=== PATIENT | female | born 1950 | race Caucasian/White ===

== ENCOUNTER 2018-08-09 23:58 | Emergency (ER) | payer MEDICARE, MEDICAID ==
[~2018-08-09] VITALS: Ht 162.6 cm; Wt 68.1 kg
[~2018-08-09 23:58] MED LIST: ALPR0.25 HHN; CARI350T PO; CIPR500T3 PO; HYDR-3240 PO; LACT1CAP35 PO; LISI-167 PO; METR-90 PO; OXYC-307 PO; SIMV20TA3 PO
--- NOTE | 2018-08-10 00:19 | NUR ---
PT REPORTS N/V/D AND NO SLEEP PAST FEW DAYS "I CAN'T TAKE IT ANY MORE"
[2018-08-10] MEDS ORDERED: ONDANSETRON 2MG/ML, 2ML IVPush ONE (00:30)
[2018-08-10] MEDS ORDERED: FAMOTIDINE 20 MG/2 ML IVPush ONE (00:30)
[2018-08-10] MEDS ORDERED: SODIUM CHLORIDE 0.9% 1,000ML IVBOLUS ONE (00:30)
[2018-08-10] MEDS ORDERED: SODIUM CHLORIDE FLUSH 10ML SYR IVF ONE (00:30)
[2018-08-10] MEDS ORDERED: FAMOTIDINE 20 MG/2 ML ONE (00:35)
[2018-08-10] MEDS ORDERED: ONDANSETRON 2MG/ML, 2ML ONE (00:35)
[2018-08-10 00:50] LABS: MEAN CORPUSCULAR HEMOGLOBIN 29.1 pg (27.0-34.8); MEAN CORPUSCULAR HGB CONC 32.6 g/dL (32.4-35.8); MEAN CORPUSCULAR VOLUME 89.1 fL (80-100); MEAN PLATELET VOLUME 7.9 fL (7.4-10.4); PLATELET COUNT 406 x10^3/uL (130-400); RED BLOOD COUNT 5.34 x10^6/uL (3.82-5.3); RED CELL DISTRIBUTION WIDTH 14.3 % (9.6-15.2)
[2018-08-10] MEDS ORDERED: DICYCLOMINE 10 MG CAPSULE ONE (00:58)
[2018-08-10] MEDS ORDERED: DICYCLOMINE 20 MG TABLET PO ONE (01:00)
[2018-08-10] MEDS ORDERED: CEFTRIAXONE 250 MG IM ONE (01:00)
[2018-08-10] MEDS ORDERED: DOXYCYCLINE 100MG TABLET PO ONE (01:00)
[2018-08-10 01:03] LABS: ALANINE AMINOTRANSFERASE 28 U/L (12-78); ALBUMIN 3.9 g/dL (3.4-5.0); ANION GAP 10 mmol/L (5-15); CALCIUM 9.8 mg/dL (8.5-10.1); CHLORIDE 108 mmol/L (98-107)
--- NOTE | 2018-08-10 01:05 | NUR ---
REPORT TO JEFFREY AT THIS TIME
--- NOTE | 2018-08-10 01:05 | NUR ---
PT TOLERATED PIV MEDICATED PER ND ORDERSIVF RUNNING
[2018-08-10 01:07] LABS: ALKALINE PHOSPHATASE 112 U/L (45-117); BILIRUBIN,TOTAL 0.4 mg/dL (0.2-1.0); TROPONIN I < 0.015 ng/mL (0.000-0.045)
--- NOTE | 2018-08-10 01:15 | NUR ---
assumed care for this pt
[2018-08-10 01:41] LABS: BASOPHILS # (AUTO) 0.09 x10^3/uL (0-0.1); BASOPHILS % (AUTO) 1 % (0-1); EOSINOPHILS % (AUTO) 2 % (1-7); LYMPHOCYTES # (AUTO) 2.03 x10^3/uL (1-3.4); LYMPHOCYTES % (AUTO) 12 % (22-44); MD SCAN; MONOCYTES # (AUTO) 0.57 x10^3/uL (0.2-0.8); MONOCYTES % (AUTO) 3 % (2-9); NEUTROPHILS # (AUTO) 13.59 x10^3/uL (1.8-6.8); NEUTROPHILS % (AUTO) 82 % (42-75)
--- NOTE | 2018-08-10 02:00 | NUR ---
PT ASLEEP VSS AND IN NO DISTRESS AT THIS TIME. PT AWAITING TEST RESULTS AND ERP RECHECK.
--- NOTE | 2018-08-10 02:13 | NUR ---
SECOND IV STARTED FOR CT SCAN. PT STILL HAVING N/V WHILE AWAKE.
[2018-08-10] MEDS ORDERED: OMNIPAQUE 350 MG/ML, 100ML BOTTLE ONE (02:26)
[2018-08-10] MEDS ORDERED: PROMETHAZINE 25 MG/ML, 1ML ONE (02:43)
--- NOTE | 2018-08-10 02:53 | NUR ---
PT BACK FROM CT SCAN AND MEDICATED FOR NAUSEA ORDERED.
[2018-08-10] MEDS ORDERED: PROMETHAZINE 25 MG/ML, 1ML IM ONE (03:00)
[2018-08-10 03:02] VITALS: BP 132/74
--- NOTE | 2018-08-10 03:22 | NUR ---
PO CHALLENGE STARTED.
[2018-08-10 03:30] LABS: MICROSCOPIC NOT IND
--- NOTE | 2018-08-10 03:35 | NUR ---
MÓNICA RN: PT IS ABLE TO TOLERATE WATER AT THIS TIME. VS STABLE. CALL LIGHT IN PLACE. WILL CONTINUE TO MONITOR WHILE PRIMARY JEFFREY RAI IS AT LUNCH.
[2018-08-10 03:40] LABS: CULTURE INDICATED? NO
== END 2018-08-10 04:29 | disposition home or self-care (01) ==
LOC: ED 08-10 04:10
DX: R11.2 Nausea with vomiting, unspecified (principal); R19.7 Diarrhea, unspecified; R10.13 Epigastric pain; F32.9 Major depressive disorder, single episode, unspecified; E86.0 Dehydration; G47.00 Insomnia, unspecified; F17.210 Nicotine dependence, cigarettes, uncomplicated; I10 Essential (primary) hypertension; Z90.49 Acquired absence of other specified parts of digestive tract; Z90.710 Acquired absence of both cervix and uterus
CPT/HCPCS: 36415; 74177; 80053; 81003; 83690; 84484; 85025; 93005; 96361; 96372; 96374; 96375; 99284; J2405; J2550; J3490; J7030; Q9967

== ENCOUNTER 2019-03-07 16:33 | Inpatient (IN) | payer OTHER, MEDICARE, MEDICAID ==
[~2019-03-07] VITALS: Ht 162.6 cm; Wt 83.5 kg
[~2019-03-07 16:33] MED LIST changes: -ALPR0.25 HHN; +ALPR0.25 PO
--- NOTE | 2019-03-07 16:56 | NUR ---
task rn: PT AMBUALTORY WITH STEADY GAIT TO ROOM AT THIS TIME. PT TO RESTROOM.
[2019-03-07] MEDS ORDERED: ACETAMINOPHEN 325 MG TABLET PO ONE (17:00)
[2019-03-07] MEDS ORDERED: ACETAMINOPHEN 325 MG TABLET ONE ×2 (17:01→22:50)
--- NOTE | 2019-03-07 17:04 | NUR ---
TASK RN: PT CHANGED INTO GOWN. LAB BEDSIDE PT PLACED ON CONT PULSE OX,NIBP, RADIAL ARM SAW OPERATOR
--- NOTE | 2019-03-07 17:07 | NUR ---
TASK RN: 68 Y/O FEMALE PRESENTS TO ED WITH C/O CP/BILATERAL RIB PAIN. PER PT "I HAVE PAIN ON BOTH OF MY SIDES AND ACROSS MY CHEST. IT STARTED ABOUT 4 DAYS AGO. IT'S GOTTEN WORSE. I JUST CAN'T BREATH NOW. I HAVE A LOT OF PAIN, BUT THE BREATHING IS HARD. I WAS SICK A MONTH AGO AND I GOT A CXR. THE DR SAID I HAD SCARRING." NO C/O TRAUMA, SYNCOPE, N/V/D.
[2019-03-07] MEDS ORDERED: SERT50TA PO (17:12)
[2019-03-07] MEDS ORDERED: IBUP-1222 PO (17:12)
[2019-03-07] MEDS ORDERED: LISI-170 PO (17:12)
--- NOTE | 2019-03-07 17:17 | NUR ---
BEDSIDE REPORT TO DENISE VALENZUELA RN.
[2019-03-07 17:23] LABS: BASOPHILS # (AUTO) 0.15 x10^3/uL (0-0.1); BASOPHILS % (AUTO) 1 % (0-1); EOSINOPHILS # (AUTO) 0.47 x10^3/uL (0-0.4); EOSINOPHILS % (AUTO) 3 % (1-7); LYMPHOCYTES # (AUTO) 2.58 x10^3/uL (1-3.4); LYMPHOCYTES % (AUTO) 17 % (22-44); MD NO; MEAN CORPUSCULAR HEMOGLOBIN 29.3 pg (27.0-34.8); MEAN CORPUSCULAR HGB CONC 32.8 g/dL (32.4-35.8); MEAN CORPUSCULAR VOLUME 89.3 fL (80-100); MEAN PLATELET VOLUME 9.3 fL (7.4-10.4); MONOCYTES % (AUTO) 7 % (2-9); NEUTROPHILS # (AUTO) 10.92 x10^3/uL (1.8-6.8); NEUTROPHILS % (AUTO) 72 % (42-75); PLATELET COUNT 339 x10^3/uL (130-400); RED BLOOD COUNT 3.93 x10^6/uL (3.82-5.3); RED CELL DISTRIBUTION WIDTH 14.8 % (9.6-15.2)
--- NOTE | 2019-03-07 17:27 | NUR ---
MD TO BEDSIDE FOR ASSESSMENT
[2019-03-07 17:29] LABS: ALANINE AMINOTRANSFERASE 127 U/L (12-78); ALBUMIN 3.6 g/dL (3.4-5.0); ANION GAP 10 mmol/L (5-15); CALCIUM 8.7 mg/dL (8.5-10.1); CHLORIDE 113 mmol/L (98-107); CREATININE 0.89 mg/dL (0.55-1.02)
[2019-03-07 17:33] LABS: ALKALINE PHOSPHATASE 120 U/L (45-117); BILIRUBIN,TOTAL 0.4 mg/dL (0.2-1.0); TOTAL PROTEIN 7.3 g/dL (6.4-8.2); TROPONIN I < 0.015 ng/mL (0.000-0.045)
[2019-03-07] MEDS ORDERED: CEFTRIAXONE PMX 1GM/50ML 50 ML ONE (17:50)
[2019-03-07] MEDS ORDERED: CEFTRIAXONE PMX 1GM/50ML 50 ML IVPB ONE (18:00)
--- NOTE | 2019-03-07 18:00 | NUR ---
IV PLACED, ABX HUNG. BLOOD CULTURES DRAWN PRIOR TO ADMIN. PT HTN CURRENTLY, AWARE. ORDERS RECEIVED. CALL LIGHT WITHIN REACH
[2019-03-07] MEDS ORDERED: NITROGLYCERIN OINT 2%, 1GM TP ONE (18:08)
[2019-03-07] MEDS ORDERED: FUROSEMIDE 20 MG/2 ML ONE (18:09)
[2019-03-07] MEDS ORDERED: LORazepam 2 MG/ML, 1ML ONE (18:09)
[2019-03-07] MEDS ORDERED: NITROGLYCERIN OINT 2%, 1GM TP STA ×2 (18:13→18:18)
--- NOTE | 2019-03-07 18:16 | NUR ---
PT MEDICATED WITH ATIVAN FOR ANXIETY. NITRO PASTE APPLIED TO CHEST, PT EDUCATED ON WHAT TO EXPECT. WILL CONTINUE TO MONITOR
[2019-03-07] MEDS ORDERED: LORazepam 2 MG/ML, 1ML IVPush ONE (18:30)
[2019-03-07] MEDS ORDERED: FUROSEMIDE 20 MG/2 ML IV ONE (18:30)
--- NOTE | 2019-03-07 18:43 | NUR ---
PT UP TO RESTROOM WITH STEADY GAIT. STS FEELING CALMER AFTER MEDS. BP DECREASING. WILL CONTINUE TO MONITOR. CALL LIGHT WITHIN REACH
--- NOTE | 2019-03-07 19:05 | NUR ---
PT UP TO RESTROOM WITH STEADY GAIT.
--- NOTE | 2019-03-07 19:19 | NUR ---
REPORT GIVEN TO LUCILLE RAI
--- NOTE | 2019-03-07 20:01 | NUR ---
PT AMBULATED TO BATHROOM WITH A STEADY GAIT. REPORT GIVEN TO NAI ON CARDIAC TELE. PT TO TRANSFER TO ROOM 528. UPDATED PT ON POC.
[2019-03-07] MEDS ORDERED: ACETAMINOPHEN 325 MG TABLET PO PRN (23:00)
[2019-03-08 01:25] VITALS: BP 116/74
[2019-03-08] MEDS ORDERED: hydrALAzine 20 MG/ML, 1ML IVPush PRN (02:00)
[2019-03-08] MEDS ORDERED: DOCUSATE 100 MG CAPSULE PO PRN (02:00)
[2019-03-08] MEDS ORDERED: BISACODYL 10 MG SUPP PR PRN (02:00)
[2019-03-08] MEDS ORDERED: ONDANSETRON 2MG/ML, 2ML IVPush PRN (02:00)
[2019-03-08] MEDS ORDERED: ONDANSETRON ODT 4 MG PO PRN (02:00)
[2019-03-08] MEDS ORDERED: POLYETHYLENE GLYCOL 17 GM PACKET PO PRN (02:00)
[2019-03-08] MEDS ORDERED: OXYcodone IR 5MG TABLET PO PRN (02:00)
[2019-03-08] MEDS ORDERED: PROMETHAZINE 25 MG/ML, 1ML IM PRN (02:00)
[2019-03-08] MEDS ORDERED: LACTATED RINGERS 1,000 ML IV SCH (02:00)
[2019-03-08] MEDS ORDERED: ACETAMINOPHEN 325 MG TABLET PO PRN (02:00)
[2019-03-08] MEDS ORDERED: morphine SULFATE 10 MG/ML, 1ML IVPush PRN (02:00)
[2019-03-08 05:55] LABS: BASOPHILS # (AUTO) 0.12 x10^3/uL (0-0.1); BASOPHILS % (AUTO) 1 % (0-1); EOSINOPHILS # (AUTO) 0.47 x10^3/uL (0-0.4); EOSINOPHILS % (AUTO) 5 % (1-7); LYMPHOCYTES # (AUTO) 1.74 x10^3/uL (1-3.4); LYMPHOCYTES % (AUTO) 18 % (22-44); MD NO; MEAN CORPUSCULAR HEMOGLOBIN 29.3 pg (27.0-34.8); MEAN CORPUSCULAR HGB CONC 32.8 g/dL (32.4-35.8); MEAN CORPUSCULAR VOLUME 89.4 fL (80-100); MEAN PLATELET VOLUME 9.2 fL (7.4-10.4); MONOCYTES % (AUTO) 7 % (2-9); NEUTROPHILS # (AUTO) 6.46 x10^3/uL (1.8-6.8); NEUTROPHILS % (AUTO) 68 % (42-75); PLATELET COUNT 295 x10^3/uL (130-400); RED BLOOD COUNT 3.85 x10^6/uL (3.82-5.3); RED CELL DISTRIBUTION WIDTH 15.2 % (9.6-15.2)
[2019-03-08 06:24] LABS: ALBUMIN 3.2 g/dL (3.4-5.0); ANION GAP 7 mmol/L (5-15); CALCIUM 8.2 mg/dL (8.5-10.1); CHLORIDE 112 mmol/L (98-107)
[2019-03-08 06:29] LABS: ALANINE AMINOTRANSFERASE 93 U/L (12-78); ALKALINE PHOSPHATASE 101 U/L (45-117); BILIRUBIN,TOTAL 0.7 mg/dL (0.2-1.0); CHOL/HDL RATIO 2.5; CHOLESTEROL, TOTAL 135 mg/dL (140-239); CREATININE 0.78 mg/dL (0.55-1.02); HDL CHOL % 39 % (28-40); HDL CHOLESTEROL (DIRECT) 53 mg/dL (40-60); LDL CHOLESTEROL,CALCULATED 63 mg/dL (54-169); LDL/HDL RATIO 1.2 (0.5-3.0); TOTAL PROTEIN 6.7 g/dL (6.4-8.2); TRIGLYCERIDES 95 mg/dL (50-200); TROPONIN I < 0.015 ng/mL (0.000-0.045); VLDL CHOLESTEROL 19 mg/dL (0-25)
[2019-03-08 07:35] LABS: FREE T4 (FREE THYROXINE) 0.97 ng/dL (0.76-1.46)
[2019-03-08 07:49] VITALS: BP 144/86
[2019-03-08 08:36] VITALS: BP 137/83
[2019-03-08] MEDS: SERTRALINE 50MG TABLET PO SCH (08:37)
[2019-03-08] MEDS: LISINOPRIL 10 MG TABLET PO SCH (08:37)
[2019-03-08] MEDS: ENOXAPARIN 40 MG/0.4 ML SQ SCH (08:38)
[2019-03-08 08:45] LABS: TROPONIN I < 0.015 ng/mL (0.000-0.045)
[2019-03-08] MEDS ORDERED: FUROSEMIDE 20 MG/2 ML IV SCH (09:00)
[2019-03-08] MEDS ORDERED: POTASSIUM CHLORIDE 20 MEQ TAB.ER.PRT PO ONE (10:00)
[2019-03-08] MEDS ORDERED: KETOROLAC 30 MG/1 ML ONE (10:55)
[2019-03-08] MEDS: KETOROLAC 30 MG/1 ML IVPush PRN ×2 (10:57→20:29)
[2019-03-08 11:27] LABS: TROPONIN I < 0.015 ng/mL (0.000-0.045)
[2019-03-08] MEDS ORDERED: FUROSEMIDE 20 MG/2 ML IV ONE (11:30)
[2019-03-08] MEDS ORDERED: ALPRazolam 1MG TAB ONE (12:19)
[2019-03-08] MEDS: ALPRazolam 1MG TAB PO PRN ×2 (12:21→20:29)
[2019-03-08 12:31] VITALS: BP 118/70
[2019-03-08 13:01] LABS: MICROSCOPIC NOT IND
[2019-03-08 13:03] LABS: CULTURE INDICATED? NO
[2019-03-08 16:46] VITALS: BP 106/71
[2019-03-08] MEDS: FUROSEMIDE 40 MG/4 ML IV SCH (16:47)
[2019-03-08 20:07] VITALS: BP 125/75
[2019-03-08] MEDS: SIMVASTATIN 20 MG TABLET PO SCH (20:30)
[2019-03-09 02:04] VITALS: BP 106/70
[2019-03-09 06:00] LABS: BASOPHILS # (AUTO) 0.03 x10^3/uL (0-0.1); BASOPHILS % (AUTO) 0 % (0-1); EOSINOPHILS # (AUTO) 0.53 x10^3/uL (0-0.4); EOSINOPHILS % (AUTO) 6 % (1-7); LYMPHOCYTES # (AUTO) 2.22 x10^3/uL (1-3.4); LYMPHOCYTES % (AUTO) 23 % (22-44); MD NO; MEAN CORPUSCULAR HEMOGLOBIN 29.4 pg (27.0-34.8); MEAN CORPUSCULAR HGB CONC 32.9 g/dL (32.4-35.8); MEAN CORPUSCULAR VOLUME 89.3 fL (80-100); MEAN PLATELET VOLUME 8.6 fL (7.4-10.4); MONOCYTES # (AUTO) 0.85 x10^3/uL (0.2-0.8); MONOCYTES % (AUTO) 9 % (2-9); NEUTROPHILS # (AUTO) 6.02 x10^3/uL (1.8-6.8); NEUTROPHILS % (AUTO) 62 % (42-75); PLATELET COUNT 284 x10^3/uL (130-400); RED BLOOD COUNT 4.13 x10^6/uL (3.82-5.3); RED CELL DISTRIBUTION WIDTH 15.1 % (9.6-15.2)
[2019-03-09 06:10] LABS: CALCIUM 8.2 mg/dL (8.5-10.1); CHLORIDE 106 mmol/L (98-107)
[2019-03-09 06:14] LABS: ANION GAP 6 mmol/L (5-15); CREATININE 0.92 mg/dL (0.55-1.02)
[2019-03-09 07:53] VITALS: BP 118/66
[2019-03-09] MEDS ORDERED: POTASSIUM CHLORIDE 20 MEQ TAB.ER.PRT PO ONE (08:30)
[2019-03-09] MEDS ORDERED: FUROSEMIDE 40 MG/4 ML ONE (09:58)
[2019-03-09] MEDS: SERTRALINE 50MG TABLET PO SCH (10:08)
[2019-03-09] MEDS: LISINOPRIL 10 MG TABLET PO SCH (10:09)
[2019-03-09] MEDS: ALPRazolam 1MG TAB PO PRN ×2 (10:09→21:34)
[2019-03-09] MEDS: METHOCARBAMOL 750 MG TABLET PO PRN ×2 (10:09→20:15)
[2019-03-09] MEDS: FUROSEMIDE 40 MG/4 ML IV SCH (10:09)
[2019-03-09] MEDS: KETOROLAC 30 MG/1 ML IVPush PRN (10:09)
[2019-03-09] MEDS: ENOXAPARIN 40 MG/0.4 ML SQ SCH (10:10)
[2019-03-09 11:29] LABS: RAPID INFLUENZA A Negative (Negative); RAPID INFLUENZA B Negative (Negative)
[2019-03-09 13:05] VITALS: BP 97/64
[2019-03-09] MEDS: POTASSIUM CHLORIDE 20 MEQ TAB.ER.PRT PO SCH (17:15)
[2019-03-09] MEDS: FUROSEMIDE 20 MG/2 ML IV SCH (17:15)
[2019-03-09 19:03] VITALS: BP 108/71
[2019-03-09] MEDS: SIMVASTATIN 20 MG TABLET PO SCH (20:15)
[2019-03-10 01:20] VITALS: BP 99/61
[2019-03-10 06:15] LABS: ANION GAP 7 mmol/L (5-15); CALCIUM 8.6 mg/dL (8.5-10.1); CHLORIDE 109 mmol/L (98-107); CREATININE 0.94 mg/dL (0.55-1.02)
[2019-03-10 07:37] VITALS: BP 101/68
[2019-03-10] MEDS ORDERED: HYDR12.517 PO (09:36)
[2019-03-10] MEDS ORDERED: ALBU8.5H8 INH (09:36)
[2019-03-10] MEDS ORDERED: HYDR50TA13 PO (09:36)
[2019-03-10] MEDS: POTASSIUM CHLORIDE 20 MEQ TAB.ER.PRT PO SCH (09:47)
[2019-03-10] MEDS: LISINOPRIL 10 MG TABLET PO SCH (09:51)
[2019-03-10] MEDS: SERTRALINE 50MG TABLET PO SCH (09:53)
[2019-03-10] MEDS: METHOCARBAMOL 750 MG TABLET PO PRN (09:53)
[2019-03-10] MEDS: ENOXAPARIN 40 MG/0.4 ML SQ SCH (09:54)
[2019-03-10] MEDS: FUROSEMIDE 20 MG/2 ML IV SCH (10:06)
[2019-03-10] MEDS: ALPRazolam 1MG TAB PO PRN (10:06)
== END 2019-03-10 11:46 | disposition home or self-care (01) | DRG 291 ==
LOC: ED 18:46 → EDIP 21:50 → 5SO 22:11 → DCLOUNGE 03-10 11:34
PROVIDERS: ADMIT Internal Medicine; ATTEND Internal Medicine
DX: I11.0 Hypertensive heart disease with heart failure (principal); J96.01 Acute respiratory failure with hypoxia; E87.2 Acidosis; R65.10 Systemic inflammatory response syndrome (SIRS) of non-infectious origin without acute organ dysfunction; I50.33 Acute on chronic diastolic (congestive) heart failure; E78.5 Hyperlipidemia, unspecified; D72.829 Elevated white blood cell count, unspecified; F32.9 Major depressive disorder, single episode, unspecified; F41.1 Generalized anxiety disorder; F17.210 Nicotine dependence, cigarettes, uncomplicated; G44.209 Tension-type headache, unspecified, not intractable; J44.9 Chronic obstructive pulmonary disease, unspecified; Z90.710 Acquired absence of both cervix and uterus; Z90.49 Acquired absence of other specified parts of digestive tract
CPT/HCPCS: 36415; 71045; 80048; 80053; 80061; 81003; 83036; 83605; 83735; 83880; 84439; 84443; 84484; 85025; 87040; 87400; 93005; 93306; 96365; 96375; G0378; J0696; J1650; J1885; J1940; J2060; J7120

== ENCOUNTER → 2020-01-16 | Outpatient (CLI) | payer MEDICARE, MEDICAID ==
[~2020-01-16] MED LIST changes: +ALBU8.5H8 INH; +HYDR12.517 PO; +HYDR50TA99 PO; +IBUP-1222 PO; +LISI-170 PO; +SERT50TA PO; +SIMV20TA19 PO; -SIMV20TA3 PO
[2020-01-16 16:03] LABS: ALANINE AMINOTRANSFERASE 44 U/L (12-78); ANION GAP 9 mmol/L (5-15); CHLORIDE 107 mmol/L (98-107)
[2020-01-16 16:12] LABS: ALKALINE PHOSPHATASE 109 U/L (45-117); BILIRUBIN,TOTAL 0.3 mg/dL (0.2-1.0); CHOL/HDL RATIO 2.9; CHOLESTEROL, TOTAL 156 mg/dL (140-239); CREATININE 1.06 mg/dL (0.55-1.02); FREE T4 (FREE THYROXINE) 0.83 ng/dL (0.76-1.46); HDL CHOL % 35 % (28-40); HDL CHOLESTEROL (DIRECT) 54 mg/dL (40-60); LDL CHOLESTEROL,CALCULATED 67 mg/dL (54-169); LDL/HDL RATIO 1.2 (0.5-3.0); TOTAL PROTEIN 7.8 g/dL (6.4-8.2); TRIGLYCERIDES 175 mg/dL (50-200); VLDL CHOLESTEROL 35 mg/dL (0-25)
== END | disposition home or self-care (01) ==
LOC: LAB 14:57
PROVIDERS: ATTEND Family Medicine
DX: I10 Essential (primary) hypertension (principal); E10.9 Type 1 diabetes mellitus without complications; E78.2 Mixed hyperlipidemia; R60.0 Localized edema
CPT/HCPCS: 36415; 80053; 80061; 82043; 83036; 84439; 84443; 84481

== ENCOUNTER 2020-08-27 17:40 | Emergency (ER) | payer MEDICARE, MEDICAID ==
[~2020-08-27] VITALS: Ht 162.6 cm; Wt 82.3 kg
[~2020-08-27 17:40] MED LIST changes: -CIPR500T3 PO; +CIPR500T4 PO; +HYDR-2214 PO; -HYDR-3240 PO; -OXYC-307 PO; +OXYC-380 PO
--- NOTE | 2020-08-27 19:47 | NUR ---
CC OF GLF X3 DAYS AGO ON RIGHT SIDE, HAS PAIN WITH INHALING AND ELBOW PAIN. DR HARDY AT BEDSIDE. PT 95% RA. SITTING UPRIGHT. FRIEND AT BEDSIDE. STATES SHE TOOK TYLENOL AT HOME. HX OF DIABETES
[2020-08-27] MEDS ORDERED: LIDODERM 5% PATCH TD ONE ×2 (20:00→20:21)
[2020-08-27] MEDS ORDERED: KETOROLAC 30 MG/1 ML IM ONE (20:00)
[2020-08-27] MEDS ORDERED: KETOROLAC 30 MG/1 ML ONE (20:21)
[2020-08-27 20:44] VITALS: BP 112/68
--- NOTE | 2020-08-27 20:45 | NUR ---
PT ABLE TO DEMONSTRATE CORRECT USE WITH IS AND VERBALIZES UNDERSTANDING OF LIDODERM PATCH AND 12 HR REMOVAL. PT AMBULATORY WITH STEADY GAIT TO DC DESK. WITH FRIEND TO DRIVE HOME.
== END 2020-08-27 20:46 | disposition home or self-care (01) ==
LOC: ED 20:00
DX: S22.31XA Fracture of one rib, right side, initial encounter for closed fracture (principal); I11.0 Hypertensive heart disease with heart failure; I50.9 Heart failure, unspecified; E78.00 Pure hypercholesterolemia, unspecified; E78.5 Hyperlipidemia, unspecified; F17.210 Nicotine dependence, cigarettes, uncomplicated; Z90.49 Acquired absence of other specified parts of digestive tract; W01.0XXA Fall on same level from slipping, tripping and stumbling without subsequent striking against object, initial encounter; Y93.89 Activity, other specified; Y92.009 Unspecified place in unspecified non-institutional (private) residence as the place of occurrence of the external cause; Y99.8 Other external cause status
CPT/HCPCS: 71101; 93005; 96372; 99283; 99406; J1885

== ENCOUNTER 2020-09-27 14:20 | Emergency (ER) | payer MEDICARE, MEDICAID ==
[~2020-09-27] VITALS: Ht 162.6 cm; Wt 81.9 kg
--- NOTE | 2020-09-27 14:55 | NUR ---
ROADWAY DESIGNER: EKG COMPLETED IN TRIAGE
--- NOTE | 2020-09-27 18:04 | NUR ---
senior sales director note: Pt upset about having to wait. Service recovery provided. POC discussed.
[2020-09-27 18:31] LABS: BASOPHILS % (AUTO) 2 % (0-1); EOSINOPHILS % (AUTO) 3 % (1-7); LYMPHOCYTES % (AUTO) 23 % (22-44); MEAN CORPUSCULAR HEMOGLOBIN 28.9 pg (27.0-34.8); MEAN CORPUSCULAR HGB CONC 33.1 g/dL (32.4-35.8); MEAN PLATELET VOLUME 8.1 fL (7.4-10.4); MONOCYTES % (AUTO) 9 % (2-9); NEUTROPHILS % (AUTO) 63 % (42-75); PLATELET COUNT 330 x10^3/uL (130-400); RED BLOOD COUNT 4.48 x10^6/uL (3.82-5.3); RED CELL DISTRIBUTION WIDTH 15.3 % (9.6-15.2)
[2020-09-27 18:43] LABS: ALANINE AMINOTRANSFERASE 75 U/L (12-78); ALBUMIN 3.7 g/dL (3.4-5.0); ANION GAP 6 mmol/L (5-15); CALCIUM 9.9 mg/dL (8.5-10.1); CHLORIDE 106 mmol/L (98-107); CREATININE 0.96 mg/dL (0.55-1.02)
[2020-09-27 18:45] LABS: ALKALINE PHOSPHATASE 129 U/L (45-117); BILIRUBIN,TOTAL 0.2 mg/dL (0.2-1.0); TOTAL PROTEIN 7.8 g/dL (6.4-8.2)
--- NOTE | 2020-09-27 19:59 | NUR ---
PT AMBULATED TO ROOM 18. FIRST CONTACT WITH PT AT THIS TIME. PT SITTING IN CHAIR. VSS. WILL CONTINUE TO MONITOR.
[2020-09-27 21:08] VITALS: BP 112/68
== END 2020-09-27 21:10 | disposition home or self-care (01) ==
LOC: ED 21:03
DX: S22.41XA Multiple fractures of ribs, right side, initial encounter for closed fracture (principal); R07.89 Other chest pain; I11.0 Hypertensive heart disease with heart failure; I50.9 Heart failure, unspecified; E11.9 Type 2 diabetes mellitus without complications; E78.00 Pure hypercholesterolemia, unspecified; E78.5 Hyperlipidemia, unspecified; F17.200 Nicotine dependence, unspecified, uncomplicated; Z90.89 Acquired absence of other organs; Z90.49 Acquired absence of other specified parts of digestive tract; Z90.710 Acquired absence of both cervix and uterus; W18.30XA Fall on same level, unspecified, initial encounter; Y93.89 Activity, other specified; Y92.89 Other specified places as the place of occurrence of the external cause; Y99.8 Other external cause status
CPT/HCPCS: 36415; 71250; 80053; 83690; 85025; 93005; 99285